=== PATIENT | male | born 1970 | race Asian ===

== ENCOUNTER 2023-08-23 14:45 | Day surgery (SDC) | payer BC ==
[2023-08-23] VITALS (7 sets, daily range): BP systolic 123–161; BP diastolic 68–95; PULSE 69–84; TEMP 98.5
[~2023-08-23] VITALS: Ht 175.3 cm; Wt 80.4 kg
[2023-08-23 17:08] LABS: BASO % 0.2 % (0.0-2.0); EOS % 0.1 % (0.0-4.0); GRAN # 13.7 K/mm3 (1.4-6.5); GRAN % 86.7 % (42.2-75.2); HEMATOCRIT 48.1 % (42.0-52.0); HEMOGLOBIN 16.4 g/dl (13.5-18.0); LYMPH # 1.4 K/mm3 (1.2-3.4); LYMPH % 8.6 % (20.0-51.0); MEAN CELL VOLUME 88 fl (80.0-100.0); MEAN CORPUSCULAR HEMOGLOBIN 30 pg (27-31); MEAN CORPUSCULAR HGB CONC 34 g/dl (33.0-37.0); MEAN PLATELET VOLUME 8.9 fl (7.4-10.4); MONO # 0.6 K/mm3 (0.1-0.6); MONO % 3.9 % (1.7-9.3); PLATELET COUNT 270 K/mm3 (130-400); RED BLOOD COUNT 5.48 M/mm3 (4.20-5.60); REDCELL DISTRIBUTION WIDTH-CV 12.6 % (11.5-14.5)
[2023-08-23 17:17] LABS: ALBUMIN 4.3 gm/dL (3.5-5.0); BILIRUBIN,TOTAL 0.7 mg/dL (0.2-1.2); C-REACTIVE PROTEIN 0.16 mg/dL (0.00-0.50); CREATININE, serum 1.34 mg/dL (0.72-1.25); TOTAL PROTEIN 8.1 gm/dL (6.2-8.1)
[2023-08-23 17:38] LABS: COLLECTION METHOD CLEAN CATCH
[2023-08-23 18:05] LABS: BUDDING YEAST Present (NOT PRESENT); URINE APPEARANCE Turbid (CLEAR/HAZY); URINE BLOOD 3+ (NEGATIVE); URINE COLOR OTHER (YELLOW); URINE GLUCOSE Negative (NEGATIVE); URINE KETONE 1+ (NEGATIVE); URINE NITRATE Negative (NEGATIVE); URINE PROTEIN(semi-quant) 2+ (NEGATIVE); URINE RBC 20-50 /hpf (0-2); URINE UROBILINOGEN 0.2 E.U/dL (0.2-1.0)
[2023-08-23 18:06] LABS: URINE BACTERIA Moderate /hpf (NONE SEEN)
--- NOTE | 2023-08-23 21:00 | NUR ---
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
[2023-08-24] VITALS (14 sets, daily range): BP systolic 119–146; BP diastolic 86–98; PULSE 50–88; TEMP 97–98.7
--- NOTE | 2023-08-24 05:00 | NUR ---
Patient up to the bathroom with SBA assist, voided 300ml urine at this time, strained urine, no stones observed at this time.
--- NOTE | 2023-08-24 07:51 | NUR ---
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
--- NOTE | 2023-08-24 08:00 | NUR ---
PT RESTING IN PAIN WITH VESSEL OPERATOR AT THIS TIME AND PAIN 0/10. PT AMBULATED TO BATHROOM WITH STEADY GAIT. NO NEEDS AT THIS TIME. WILL CONTINUE TO MONITOR.
[2023-08-24] MEDS ORDERED: NORCO 325 MG-51 TAB PO (08:31)
[2023-08-24] MEDS ORDERED: PYRIDIUM 100MG100 MG PO (08:31)
--- NOTE | 2023-08-24 09:00 | NUR ---
PT UP TO FLOOR AT THIS TIME. A/O X4, PAIN 0/10, NO N/V, VITALS STABLE, PLAN TO ADVANCE DIET, WILL CONTINUE TO MONITOR.
--- NOTE | 2023-08-24 13:23 | NUR ---
SW met with patient to complete intake; patient confirmed that he resided in [place] and currently does not have PCP. SW provided patient [place] PCP list and reports his pharmacy of choice is [facility]. Patient does not have DPOA and not interested at this time on completing form, patient also informed SW that he does not have or want to list a NOK at this time. Patient shared that he is independent in his home and no current DME's. Patient is excepting to discharge home, pending any further medical recommendations.
--- NOTE | 2023-08-24 14:16 | NUR ---
DISCHRAGE INFORMATION PROVIDED. DISCUSSED FOLLOW UP APPOINTMENTS, NEW MEDICATIONS, AND SIGNS OF URINATION ISSUES. NO QUESTIONS AT THIS TIME. IV REMOVED. PT ESCORTED OUT OF BUILDING AT THIS TIME.
== END 2023-08-24 14:09 | disposition home or self-care (01) ==
LOC: COL.ER 14:45 → SDCO 18:10 → COL.ER 18:10 → SURG 18:10 → SDCO 08-24 14:09 → SURG 08-24 14:09 → COL.ER 08-25 13:28 → SDCO 08-25 13:28
PROVIDERS: Emergency Medicine
DX: N13.2 Hydronephrosis with renal and ureteral calculous obstruction (principal)
CPT/HCPCS: OP; C1769; C2617; G0378; J0690; J0696; J1100; J1885; J2270; J2405; J2704; J3010; J7030; J7070; Q9967